=== PATIENT | male | born 1970 | race Two or more races ===

== ENCOUNTER 2019-04-30 20:04 | Emergency (ER) | payer SELFPAY ==
[~2019-04-30] VITALS: Ht 177.8 cm; Wt 75.0 kg
[2019-04-30 20:11] VITALS: BP 158/90
[2019-04-30] MEDS ORDERED: LIDOCAINE-MPF 1%, 5ML ONE (20:38)
[2019-04-30] MEDS ORDERED: DIPH,PERTUSS(ACELL),TET VAC/PF 0.5 ML IM-VACC ONE ×2 (21:05→21:30)
[2019-04-30] MEDS ORDERED: NEOSPORIN OINT. PKT 1 PACKET ONE (21:21)
== END 2019-04-30 21:40 | disposition home or self-care (01) ==
LOC: ED 21:25
DX: S61.412A Laceration without foreign body of left hand, initial encounter (principal); X58.XXXA Exposure to other specified factors, initial encounter; Y93.89 Activity, other specified; Y92.098 Other place in other non-institutional residence as the place of occurrence of the external cause; Y99.8 Other external cause status
CPT/HCPCS: 12042; 90471; 90715; 99284

== ENCOUNTER 2019-05-15 06:53 | Emergency (ER) | payer SELFPAY ==
[~2019-05-15] VITALS: Ht 177.8 cm; Wt 76.8 kg
[2019-05-15 07:11] VITALS: BP 129/96
--- NOTE | 2019-05-15 07:30 | NUR ---
PRINCIPAL DATABASE DEVELOPER: PT TO ROOM FROM LOBBY
[2019-05-15] MEDS ORDERED: DIAZEPAM 5 MG TABLET ONE (08:10)
[2019-05-15] MEDS ORDERED: KETOROLAC 30 MG/1 ML ONE (08:10)
[2019-05-15] MEDS ORDERED: DIAZEPAM 5 MG TABLET PO ONE (08:30)
[2019-05-15] MEDS ORDERED: KETOROLAC 30 MG/1 ML IM ONE (08:30)
== END 2019-05-15 10:54 | disposition home or self-care (01) ==
LOC: ED 08:13
DX: S29.012A Strain of muscle and tendon of back wall of thorax, initial encounter (principal); X50.0XXA Overexertion from strenuous movement or load, initial encounter; Y93.89 Activity, other specified; Y92.098 Other place in other non-institutional residence as the place of occurrence of the external cause; Y99.8 Other external cause status
CPT/HCPCS: 71046; 96372; 99283; J1885